=== PATIENT | female | born 1960 | race Caucasian/White ===

== ENCOUNTER 2017-08-09 09:32 | Outpatient (CLI) | payer OTHER ==
--- NOTE | ~2017-08-09 | HEMODYNAMI ---
PATIENT:CRYSTAL RICHARDSON MEDICAL RECORD: [id number] : 62 LOCATION:DLucianoCAT ADMISSION DATE: 08/09/17 Generatedon:08/09/201711:57 Patient name: CRYSTAL RICHARDSON Patient #: [id number] SSN: : Date of study: 08/09/2017 Page: Of Hemodynamic Procedure Report Patient Data Patient Demographics Procedure consent was obtained First Name: CRYSTAL Gender: Female Last Name: DYLAN : 1960 Middle Initial: L Age: 57 year(s) Patient #: [id number] Race: Additional ID: [id number] Contact details [address]: [address] [place] [address] State: [place] City: [place] Zip code: [address] Past Medical History Allergies Allergen Reaction Date Comments Reported Other allergy 05/07/2016 Umair Inhibitors UMAIR inhibitors 08/09/2017 Admission Admission Data Admission Date: 08/09/2017 Admission Time: 9:32 Height (in.): 68 BSA: 2.49 (m2) Height (cm.): 172.72 BMI: 48.2 (kg/m2) Weight (lbs.): 317 Weight (kg.): 143.79 Lab Results Lab Result Date: 08/09/2017 Lab Result Time: 0:00 Biochemistry Name Units Result Min Max BUN mg/dl 13 --(--*-)-- 7 18 Creatinine mg/dl 1 --(--*-)-- 0.6 1.3 CBC Name Units Result Min Max Hemoglobin g/dl 14.3 --(*---)-- 13.5 17.5 Procedure Procedure Types Cath Procedure Diagnostic Procedure [facility] w/Coronaries Miscellaneous Procedures Moderate Sedation up to 15 minutes Procedure Description Procedure Date Procedure Date: 08/09/2017 Procedure Start Time: 11:41 Procedure End Time: 11:49 Procedure Staff Name Function Donavon Marcum MD Performing Physician Zainab Power RT Scrub Wyatt Elizabeth RN Nurse Adelina Daigle RN Nurse Katherin Villatoro RT Monitor Procedure Data Cath Procedure Fluoroscopy Diagnostic fluoroscopy Total fluoroscopy Time: 1.1 time: 1.1 min min Diagnostic fluoroscopy Total fluoroscopy dose: 416 dose: 416 mGy mGy Contrast Material Contrast Material Type Amount (ml) Isovue 300 52 Entry Location Entry Primary Successful Side Size Upsize Upsize Entry Closure Succes sful Closure Location (Fr) 1 (Fr) 2 (Fr) Remarks Device Remarks Femoral Right 5 Fr Exoseal artery Estimated blood loss: 10 ml Diagnostic catheters Device Type Used For End Catheter Placement Cordis 5Fr Pigtail Procedure Catheter (MP) Cordis 5Fr JL 4.0 Procedure Catheter (MP) Cordis 5Fr 3DRC Catheter Procedure (MP) Procedure Complications No complications Procedure Medications Medication Administration Route Dosage 0.9% NaCl 100 ml/hr Oxygen 2 l/min Lidocaine 2% 20 Heparin Flush Bag added to field 2 bags (1000units/500ml NS) Versed I.V. 1 mg Fentanyl I.V. 50 mcg Versed I.V. 1 mg Fentanyl I.V. 50 mcg Versed I.V. 1 mg Fentanyl I.V. 50 mcg Versed I.V. 1 mg Fentanyl I.V. 50 mcg Fentanyl I.V. 25 mcg Hemodynamics Rest BSA: 2.49 (m2) HGB: 14.3 (g/dl) O2 Consumption: Estimated: 242.92 (ml/min) O2 Co nsumption indexed: Estimated:97.56 (ml/min/m) Heart Rate: 74 (bpm) Snapshots Pre Cath Intra NCS Post Cath Vital Signs Time Heart Resp SPO2 etCO2 NIBP (mmHg) Rhythm Pain Sedation Rate (ipm) (%) (mmHg) Status Level (bpm) 11:12:59 73 21 100 26.3 149/85(112) NSR 0 (11) 10(A) , No pain 11:17:38 73 27 100 35.3 167/99(133) NSR 0 (11) 10(A) , No pain 11:22:25 75 19 99 0.7 161/92(124) NSR 0 (11) 10(A) , No pain 11:27:09 78 19 97 41.3 150/93(111) NSR 0 (11) 10(A) , No pain 11:31:48 79 16 96 9 158/92(115) NSR 0 (11) 10(A) , No pain 11:36:33 80 15 96 0.7 156/91(116) NSR 0 (11) 10(A) , No pain 11:41:17 78 17 96 38.3 150/82(101) NSR 0 (11) 9(A) , No pain 11:46:00 82 15 95 51.1 148/85(114) NSR 0 (11) 9(A) , No pain 11:50:43 84 15 95 52.5 154/80(111) NSR 0 (11) 9(A) , No pain 11:56:06 83 16 97 50.3 146/78(105) NSR 0 (11) 10(A) , No pain Medications Time Medication Route Dose Verified Delivered Reason Notes Ef fectiveness by by 11:15:19 0.9% NaCl 100ml/hr Donavon Elizabeth RN 11:15:43 Oxygen 2 l/min Donavon Elizabeth RN 11:16:10 Lidocaine 2% 20ml Donavon Schneider vial Jossue Elizabeth RN 11:17:04 Heparin Flush added 2 bags Donavon Schneider used for Bag to Jossue Elizabeth RN procedure (1000units/500ml field NS) 11:37:31 Versed I.V. 1 mg Donavon Schneider for Jossue Elizabeth RN sedation 11:37:48 Fentanyl I.V. 50 mcg Donavon Schneider for Jossue Elizabeth RN sedation 11:40:59 Versed I.V. 1 mg Donavon Schneider for Jossue Elizabeth RN sedation 11:41:08 Fentanyl I.V. 50 mcg Donavon Schneider for Jossue Elizabeth RN sedation 11:44:38 Versed I.V. 1 mg Donavon Schneider for Jossue Elizabeth RN sedation 11:44:41 Fentanyl I.V. 50 mcg Donavon Schneider for Jossue Elizabeth RN sedation 11:47:23 Versed I.V. 1 mg Donavon Schneider for Jossue Elizabeth RN sedation 11:47:26 Fentanyl I.V. 50 mcg Donavon Schneider for Jossue Elizabeth RN sedation 11:50:30 Fentanyl I.V. 25 mcg Donavon Schneider for Jossue Elizabeth RN sedation Procedure Log Time Note 10:55:27 Patient Height : 68 inches 10:55:34 Patient Weight : 317 lbs 10:56:46 Diagnostic Cath status Elective 10:56:48 Zainab Tono RT(R) sent for patient. Start room use. 10:56:49 Time tracking: Regular hours 10:56:56 Plan of Care:Hemodynamics will remain stable., Cardiac rhythm will remain stable., Comfort level will be maintained., Respiratory function will remain adequate., Patient/ family verbilizes understanding of procedure., Procedure tolerated without complication., Recovers from procedure without complications.. 11:11:14 Patient received from Pre/Post Procedure Room to CCL 2 Alert and oriented. Tansferred to table in Supine position. 11:11:15 Warm blankets applied, and delroy hugger turned on for patient comfort. 11:11:15 Correct patient and procedure confirmed by team. 11:11:17 Signed procedure consent form obtained from patient. 11:11:18 Vital chart was started 11:11:19 Baseline sample Acquired. 11:11:22 Rhythm: sinus rhythm 11:11:24 Full Disclosure recording started 11::29 H&P Date Dictated: 08/09/2017 Within 30 days and on chart., H&P Addendum completed by physician on day of procedure. (MUST COMPLETE FOR ALL OUTPATIENTS). 11:11:30 Pre-procedure instructions explained to patient. 11:11:30 Pre-op teaching completed and patient verbalized understanding. 11:11:31 Family in waiting room. 11:11:33 Patient NPO since Midnight. 11:11:41 Patient allergic to UMAIR inhibitors 11:11:43 Is the patient allergic to Iodine/contrast media? No. 11:11:44 Was the patient premedicated? No 11:11:51 Is patient on blood thinner?Yes 11:11:54 ACC The patient was administered the following blood thiners within the last 24 hours: ACCPlavix 11:13:29 Patient diabetic? No. 11:13:40 Snore? Yes 11:13:41 Sleep apnea? Yes 11:13:46 Dentures? No ? 11:13:52 Patient pain scale 0/10 ?. 11:14:01 IV patent on arrival in left hand with 0.9% NaCl at O. 11:14:20 Lab results completed and on chart. 11:14:23 Right groin area was prepped with chlora-prep and draped in sterile fashion 11:14:24 Alarms reviewed by R. N. 11:14:24 Sharps counted by scrub and verified by R.N. 11:14:26 Physician paged 11:15:19 0.9% NaCl 100ml/hr was administered by Wyatt Elizabeth RN; ; 11:15:43 Oxygen 2 l/min was administered by Wyatt Elizabeth RN; ; 11:16:10 Lidocaine 2% 20ml vial was administered by Wyatt Elizabeth RN; ; 11:17:04 Heparin Flush Bag (1000units/500ml NS) 2 bags added to field was administered by Wyatt Elizabeth RN; used for procedure; 11:19: Lab Result : BUN 13 mg/dl 11:19: Lab Result : Hemoglobin 14.3 g/dl 11:19: Lab Result : Creatinine 1 mg/dl 11:36:43 Physician arrived 11:36:44 --------ALL STOP TIME OUT------ 11:36:45 Final Timeout: patient, procedure, and site verified with staff and physician. All members of the team are in agreement. 11:36:46 Right groin site verified by team. 11:36:52 Sedation plan: IV Moderate Sedation Versed, Fentanyl 11:37:31 Versed 1 mg I.V. was administered by Wyatt Elizabeth RN; for sedation; 11:37:48 Fentanyl 50 mcg I.V. was administered by Wyatt Elizabeth RN; for sedation; 11:40:59 Versed 1 mg I.V. was administered by Wyatt Elizabeth RN; for sedation; 11:41:08 Fentanyl 50 mcg I.V. was administered by Wyatt Elizabeth RN; for sedation; 11:41:27 Use device set Femoral Dx 11:41:41 Procedure started. 11:41:50 Local anesthetic to right femoral artery with Lidocaine 2% by Donavon Marcum MD.INITIAL ACCESS ONLY 11:41:55 Acist Syringe opened to sterile field. 11:41:56 Bag Decanter opened to sterile field. 11:41:56 Medline Cath Pack opened to sterile field. 11:41:57 Terumo 5Fr [place] Sheath opened to sterile field. 11:41:57 [facility] Osman 260cm J .035 wire opened to sterile field. 11:41:59 Acist Hand Control opened to sterile field. 11:41:59 Acist Manifold opened to sterile field. 11:41:59 Diagnostic Infinity 5Fr Multipack catheter opened to sterile field. 11:42:00 Tegaderm 4 x 4 opened to sterile field. 11:43:23 A 5 Fr sheath was inserted into the Right Femoral artery 11:43:34 A Cordis 5Fr Pigtail Catheter (MP) was advanced over the wire and used for Procedure. 11:43:38 LV gram done using MAIER 11:44:25 EF : 60 % 11:44:26 Catheter removed. 11:44:35 A Cordis 5Fr JL 4.0 Catheter (MP) was advanced over the wire and used for Procedure. 11:44:37 LCA angiography performed. 11:44:38 Versed 1 mg I.V. was administered by Wyatt Elizabeth RN; for sedation; 11:44:41 Fentanyl 50 mcg I.V. was administered by Wyatt Elizabeth RN; for sedation; 11:45:49 Catheter removed. 11:46:00 A Cordis 5Fr 3DRC Catheter (MP) was advanced over the wire and used for Procedure. 11:46:05 RCA angiography performed. 11:46:24 Catheter removed. 11:46:36 Cordis 5Fr Exoseal opened to sterile field. 11:47:06 Sheath removed intact; hemostasis achieved with Exoseal to the Right Femoral artery. 11:47:23 Versed 1 mg I.V. was administered by Wyatt Elizabeth RN; for sedation; 11:47:26 Fentanyl 50 mcg I.V. was administered by Wyatt Elizabeth RN; for sedation; 11:48:00 Procedure ended.(Physican Out) 11:48:10 Fluoroscopy time 01.10 minutes. 11:48:50 Fluoroscopy dose: 416 mGy 11:48:50 Flurop Dose total: 416 11:48:56 Contrast amount:Isovue 300 52ml. 11:49:00 Sharps counted by scrub and verified by R.N. 11:49:02 Insertion/operative site no bleeding no hematoma. 11:49:05 Post Procedure Pulses reassessed and unchanged 11:49:14 Post procedure rhythm: unchanged. 11:49:17 Estimated blood loss: 10 ml 11:49:19 Post procedure instruction explained to patient.Patient verbalizes understanding. 11:49:32 Procedure Complication : No complications 11:49:36 Vital chart was stopped 11:49:36 See physician's report for complete and final results. 11:49:43 Patient transfered to Pre/Post Procedure Room with Stretcher. 11:49:45 Procedure ended. 11:49:45 Full Disclosure recording stopped 11:49:53 End room use (Document Last) 11:50:30 Fentanyl 25 mcg I.V. was administered by Wyatt Elizabeth RN; for sedation; Device Usage Item Name Manufacture Quantity Catalog Hospital Part Current Minimal Lo t# / Number Charge Number Stock Stock Serial# Code Acist Acist 1 [id number] 405905 259235 [id number] 20 Syringe [employer] Inc Bag Microtek 1 2002S 338137 47168 461724 5 Decanter [employer] Inc. Medline Cardinal 1 [id number] 166739 07410 937263 5 Cath Pack Health Terumo 5Fr Terumo 1 [id number] 521775 997846 867489 [address] Osman 1 228874 395515 923291 505364 30 260cm J .035 wire Acist Hand Acist 1 52573 518217 425378 446512 5 Control Medical Systems Inc Acist Acist 1 99107 296670 421363 714785 5 Manifold Medical Systems Inc Diagnostic Cardinal 1 [id number] 219088 34002 427585 30 Infinity Health 5Fr Multipack catheter Tegaderm 4 3M 1 1626W 118251 921291 990812 5 x 4 Cordis 5Fr Cardinal 1 279921 5 Pigtail Health Catheter (MP) Cordis 5Fr Cardinal 1 553381 5 JL 4.0 Health Catheter (MP) Cordis 5Fr Cardinal 1 808849 5 3DRC Health Catheter (MP) Cordis 5Fr Cardinal 1 EX500 367048 677781 335077 10 [facility]it [place] Stage Time Signature Unsigned Intra-Procedure 08/09/2017 Katherin Villatoro 11:57:27 AM RT(R) Signatures Monitor : Katherin Villatoro Signature : RT Date : Time : [facility] [address] [place] [address]
[~2017-08-09 09:32] MED LIST: ASPIRIN EC81 M1 PO; FUROSEMIDE20 MG PO; KLOR-CON 1010 MEQ PO; LASIX40 MG PO; LIPITOR40 MG PO; MICRO-K10 MEQ PO; PLAVIX75 MG PO; SYNTHROID25 MCG PO; SYNTHROID300 MCG PO; TENORMIN100 MG PO
[2017-08-09] MEDS ORDERED: CYMBALTA60 MG PO (09:46)
[2017-08-09] MEDS ORDERED: ATIVAN1 MG PO (09:47)
[2017-08-09] MEDS ORDERED: PLAVIX75 MG PO (09:47)
[2017-08-09] MEDS ORDERED: VITAMIN D250000 UNIT PO (09:48)
[2017-08-09 09:50] VITALS: BP 145/98; BMI 47.9
[2017-08-09 10:01] LABS: BASOPHILS 0.2 % (0-2); EOSINOPHILS 3.8 % (0-7); HEMATOCRIT 42.6 % (36.0-48.0); HEMOGLOBIN 14.3 g/dL (12-16); IMMATURE GRANULOCYTES 0.2 % (0-5); LYMPHOCYTES 8.9 % (15-50); MCH 31.3 pg (26.0-34.0); MCHC 33.6 g/dL (31.0-37.0); MCV 93.2 fL (80.0-100.0); MEAN PLATELET VOLUME 10.5 fL (7.4-10.4); MONOCYTES 6.8 % (2-11); NEUTROPHILS 80.1 % (40-80); PLATELET COUNT 196 10x3/uL (130-400); RBC 4.57 10x6/uL (4.00-5.40); WBC 8.4 10x3/uL (4.8-10.8)
[2017-08-09 10:30] LABS: ANION GAP 13.2 mmol/L (8-16); CALCIUM 9.3 mg/dL (8.5-10.1); CARBON DIOXIDE 25.4 mmol/L (21.0-32.0); POTASSIUM - SERUM 4.6 mmol/L (3.5-5.1)
--- NOTE | 2017-08-09 12:14 | NUR ---
1205 REVEIVED PT FROM [facility]. PT DENIES ANY C/O AT THIS TIME. DRESSING TO RIGHT GROIN IS CDI, AREA IS SOFT AND NONTENDER. PEDAL PULSES PALPABLE, FOOT IS WARM. PT INSTRUCTED TO KEEP HEAD FLAT TO PILLOW AND RIGHT LEG STRAIGHT AND PT VERBALIZES UNDERSTANDING. NSR, DENIES ANY C/O CHEST PAIN. FAMILY AT BEDSIDE, CALL LIGHT IS IN REACH.
--- NOTE | 2017-08-09 12:20 | NUR ---
RIGHT GROIN REMAINS STABLE WITH NO BLEEDING OR HEMATOMA NOTED. PEDAL PULSES PALPABLE. VSS. FAMILY AT BEDSIDE, CALL LIGHT IN REACH.
--- NOTE | 2017-08-09 12:42 | NUR ---
DRESSING TO RIGHT GROIN IS CDI, AREA IS SOFT AND NONTENDER. PEDAL PULSES PALPABLE. VSS. FAMILY AT BEDSIDE, CALL LIGHT IN REACH.
--- NOTE | 2017-08-09 13:14 | NUR ---
DRESSING TO RIGHT GROINIS CDI, AREA IS SOFT AND NONTENDER. VSS. FAMILY AT BEDSIDE.
--- NOTE | 2017-08-09 13:43 | NUR ---
1330 HOB ELEVATED, DRESSING TO RIGHT GROIN IS CDI, AREA IS SOFT AND NONTENDER.
--- NOTE | 2017-08-09 13:57 | NUR ---
1345 IV DC'D WITH CATH INTACT. DC INSTRUCTIONS REVIEWED WITH PT AND SPOUSE WHO VERBALIZE UNDERSTANDING. PT DRESSING FOR DC TO HOME.
--- NOTE | 2017-08-09 14:06 | NUR ---
PT HAS AMBULATED TO THE BATHROOM AND VOIDED QS. DENIES ANY C/O. GROIN REMAINS STABLE. PT ESCORTED TO PRIVATE AUTO VIA WC BY NURSE WITH DRIVNG HER HOME.
--- NOTE | 2017-08-23 14:14 | OP ---
PATIENT NAME: CRYSTAL RICHARDSON MEDICAL RECORD: [id number] :62 LOCATION:D.CAT ADMISSION DATE: SURGEON: ANNAMARIA WALTER MD DATE OF OPERATION: 08/09/2017 PROCEDURES: 1. Left heart catheterization. 2. Selective coronary angiography. 3. Left ventriculogram. INDICATION: Angina, coronary artery disease, previous PTCA stent. PROCEDURE IN DETAIL: After informed consent was obtained and after a detailed explanation of the risks, benefits as well as alternative therapies, the patient elected to proceed with angiogram and angioplasty. The right femoral area was prepped and draped in normal sterile fashion. The right femoral artery was cannulated via modified Seldinger technique with placement of 5-Prydeinig sheath. All catheters exchanged through this sheath. FINDINGS: Left ventriculogram performed in standard 30-degree MAIER view, reveals good cardiac wall motion throughout all segments. Overall ejection fraction estimated 60%. SELECTIVE CORONARY ANGIOGRAPHY: 1. Left main showed no significant angiographic disease. 2. Left anterior descending has 2 previously placed stents. These are widely patent with no significant restenosis. No disease elsewise throughout the LAD or its branches. 3. Left circumflex shows moderate irregularities, but no flow-limiting stenosis. 4. Right coronary has moderate irregularities, but no flow-limiting stenosis. OVERALL IMPRESSION: Wide patency of the previously placed stents. No significant restenosis. No disease elsewise. Continue medical management of the coronary artery disease and cardiac risk factors. TRANSINT:[id number] Voice Confirmation ID: [id number] DOCUMENT ID: [id number] ANNAMARIA WALTER MD at 1414 CC: [id number] DICTATION DATE: 08/09/17 1155 BATTERY INSPECTOR: 08/09/17 1212 DEP CLI 08/09/17 [place] [id number]
== END 2017-08-09 14:00 | disposition home or self-care (01) ==
LOC: D.CATH 09:32
PROVIDERS: Internal Medicine Interventional Cardiology
DX: I25.119 Atherosclerotic heart disease of native coronary artery with unspecified angina pectoris (principal); R06.00 Dyspnea, unspecified; R07.9 Chest pain, unspecified; I10 Essential (primary) hypertension; F17.200 Nicotine dependence, unspecified, uncomplicated; Z01.812 Encounter for preprocedural laboratory examination

== ENCOUNTER → 2019-06-29 10:55 | Outpatient (CLI) | payer SELFPAY ==
[~2019-06-29 10:55] MED LIST changes: +ATIVAN1 MG PO; +CYMBALTA60 MG PO; +VITAMIN D250000 UNIT PO
== END | disposition home or self-care (01) ==
LOC: D.LABREF 10:55
PROVIDERS: ATTEND Orthopaedic Surgery
DX: M17.11 Unilateral primary osteoarthritis, right knee (principal)

== ENCOUNTER 2019-07-08 13:51 | Inpatient (IN) | payer OTHER ==
[~2019-07-08] VITALS: Ht 170.2 cm; Wt 150.0 kg
[2019-07-22 11:55] LABS: APTT 25.6 SECONDS (22.8-39.4); PROTIME 12.7 SECONDS (11.6-15.0)
[2019-07-22 12:03] LABS: APPEARANCE CLEAR (CLEAR); BILIRUBIN NEGATIVE (NEGATIVE); COLOR YELLOW (YELLOW); GLUCOSE NEGATIVE (NEGATIVE); KETONE NEGATIVE (NEGATIVE); NITRITE NEGATIVE (NEGATIVE); PROTEIN NEGATIVE (NEGATIVE); SPECIFIC GRAVITY 1.015 (1.005-1.020); UROBILINOGEN NORMAL (NORMAL)
[2019-07-22 12:06] LABS: ANION GAP 11.6 mmol/L (8-16); CALCIUM 9.2 mg/dL (8.5-10.1); CREATININE - SERUM 0.9 mg/dL (0.6-1.3); POTASSIUM - SERUM 4.6 mmol/L (3.5-5.1)
[2019-07-22 12:31] LABS: BASOPHILS 0.3 % (0-2); EOSINOPHILS 4.4 % (0-7); HEMATOCRIT 42.9 % (36.0-48.0); HEMOGLOBIN 13.9 g/dL (12-16); IMMATURE GRANULOCYTES 0.2 % (0-5); LYMPHOCYTES 39.2 % (15-50); MCH 30.2 pg (26.0-34.0); MCHC 32.4 g/dL (31.0-37.0); MCV 93.1 fL (80.0-100.0); MEAN PLATELET VOLUME 11.2 fL (7.4-10.4); MONOCYTES 8.9 % (2-11); PLATELET COUNT 222 10x3/uL (130-400); RBC 4.61 10x6/uL (4.00-5.40); RDW 13.4 % (11.5-14.5)
[2019-07-28] VITALS (11 sets, daily range): BP systolic 113–150; BP diastolic 44–93; Ht 170.2 cm; Wt 150.0 kg
[2019-07-28] MEDS ORDERED: ULTRAM50 MG PO (14:15)
--- NOTE | 2019-07-28 15:27 | NUR ---
PATIENT RESTING ON LEFT SIDE. BRANDO IN ROOM. FALL PRECAUTIONS IN PLACE. VS STABLE. CL IN REACH. WCTM
--- NOTE | 2019-07-28 23:27 | NUR ---
A/O WITH NO SIGNS OF DISTRESS. IV TO THE LT FOREARM WITH NO REDNESS OR SWELLING. WOUND VAC TO THE RIGHT KNEE WITH BLOODY DISCHARGE NOTED. PULSE PALP TO FOOT. APPLIED ICE PACKS TO KNEE. DENIES NO OTHER NEEDS AT THIS TIME. CONTINUE PLAN OF CARE.
[2019-07-29] VITALS: BP 121/63
[2019-07-29 04:00] VITALS: BP 139/56
[2019-07-29 06:20] LABS: HEMATOCRIT 34.7 % (36.0-48.0); HEMOGLOBIN 11.2 g/dL (12-16); MCH 30.2 pg (26.0-34.0); MCHC 32.3 g/dL (31.0-37.0); MCV 93.5 fL (80.0-100.0); MEAN PLATELET VOLUME 11.1 fL (7.4-10.4); RBC 3.71 10x6/uL (4.00-5.40); RDW 13.5 % (11.5-14.5); WBC 9.8 10x3/uL (4.8-10.8)
--- NOTE | 2019-07-29 07:45 | NUR ---
ASSISTED PATIENT OFF CPM MACHINE TO BATHROOM. CPM MACHINE PUT BACK ON AFTER. BRANDO HOSE REMOVED. PT STATED "DR NICOLAS PULLED IT DOWN AND SAYS WE NEEDED TO TAKE IT OFF." COFFEE PROVIDED. CL IN REACH. WCTM
--- NOTE | 2019-07-29 08:20 | CN ---
PATIENT NAME:CRYSTAL RICHARDSON MEDICAL RECORD: [id number] : 62 LOCATION:D.MS [facility]13 ADMIT DATE: 07/28/19 ACCOUNT: [id number] CONSULTING PHYSICIAN: LYNETTE LIEBERMAN MD REFERRING PHYSICIAN: TINO NICOLAS DO DATE OF CONSULTATION: 07/28/2019 This is a consultation from Dr. Nicolas for medical management. HISTORY: This is a 59-year-old female, who I have followed for years. She has hypertension, hyperlipidemia, hypothyroidism, depression, fibromyalgia, osteoarthritis, and coronary artery disease. She has been having right knee pain for over a year. She had an MRI done in April of last year that showed a little meniscus tear, but nothing significant. Another MRI done last month showed more significant arthritis. She was referred to Dr. Nicolas, and she is admitted now by Dr. Nicolas for right total knee arthroplasty. I am consulted for medical problems. PAST SURGICAL HISTORY: She has had coronary stent, cholecystectomy, hysterectomy, ORIF of ankle fracture, and a pilonidal cyst treatment. PAST MEDICAL HISTORY: Hypertension, hyperlipidemia, hypothyroidism, depression, fibromyalgia, osteoarthritis, and coronary artery disease. ALLERGIES: SHE DOES NOT TOLERATE KACY INHIBITORS VERY WELL. HOME MEDICATIONS: Atenolol 100 mg once a day, atorvastatin 20 mg once a day, Cymbalta 60 mg once a day, Ativan 1 mg b.i.d. p.r.n. anxiety, tramadol 50 mg 1 or 2 p.r.n. pain, Lasix 20 mg a day, levothyroxine 150 mcg 2 pills once a day, vitamin D 50,000 units once a week, and potassium 10 mEq once a day. HABITS: She is a current every day smoker. Occasional alcohol. No illicit drug use. SOCIAL HISTORY: She is an RN and . FAMILY HISTORY: Father of prostate cancer. Mother is . She had breast cancer, dementia, coronary artery disease. REVIEW OF SYSTEMS: GENERAL: No major weight changes, if anything maybe weight gain due to lack of ability to exercise. HEENT: No particular sinus or allergy problems. RESPIRATORY: No history of asthma or emphysema, though she is a long time smoker. CARDIAC: Her heart has been stable. She does have a history of stents; however. GASTROINTESTINAL: Occasional heartburn. GENITOURINARY: No significant problems there. MUSCULOSKELETAL: She has osteoarthritis of the knee and has had fibromyalgia. NEUROLOGIC: No migraines or seizure disorder. PSYCHIATRIC: She has anxiety and depression. PHYSICAL EXAMINATION: VITAL SIGNS: Temperature 97.5, pulse 67, respirations 19, blood pressure CONSULT REPORT [id number] CRYSTAL RICHARDSON 124/65. GENERAL: She does not appear to be in acute distress. HEENT: Unremarkable. NECK: Supple. HEART: Regular rate and rhythm without murmur. LUNGS: Clear. ABDOMEN: Obese, soft, nontender. EXTREMITIES: Dressing around the right knee and leg. LABORATORY DATA: Lab done preoperatively. CBC was essentially normal. INR was 1. Basic metabolic panel was normal as was the urinalysis. ASSESSMENT: 1. Hypertension. 2. Osteoarthritis, now status post right TKA by Dr. Nicolas. 3. Hypothyroidism. 4. Fibromyalgia. 5. Depression. PLAN: We will continue her usual current medications. We will continue the postop protocol. Other tests and procedures as warranted. Thank you for this consult. TRANSINT:[id number] Voice Confirmation ID: [id number] DOCUMENT ID: [id number] LYNETTE LIEBERMAN MD at 0820 CC: [id number] DICTATION DATE: 07/28/192106 ADVANCED MANUFACTURING CONSULTANT: 07/29/19 0343 [facility] [address] [place] [address]
[2019-07-29 08:30] VITALS: BP 139/72
[2019-07-29] MEDS ORDERED: ELIQUIS2.5 MG PO (11:50)
[2019-07-29] MEDS ORDERED: OXYCODONE HCL5 M1 PO (11:51)
[2019-07-29] MEDS ORDERED: KEFLEX500 MG PO (11:51)
[2019-07-29] MEDS ORDERED: VISTARIL50 MG PO (11:51)
--- NOTE | 2019-07-29 15:29 | MORECARE ---
CASE MANAGEMENT DISCHARGE SUMMARY PATIENT: CRYSTAL RICHARDSON UNIT: [id number] ADM DATE: 07/28/19 AGE: 59 : 62 SEX: F ROOM/BED: D.2213 AUTHOR: STEPHANIE DELGADO PHYSICIAN: REFERRING PHYSICIAN: TINO NICOLAS DO DATE OF SERVICE: 07/29/19 Discharge Plan Patient Name: CRYSTAL RICHARDSON [facility] [facility] 1960 Planned Disposition: Home with Home Health Anticipated Discharge Date: Discharge Date: Expected LOS: Initial Reviewer: [email or web address] Initial Review Date: 07/28/2019 Generated: 07/29/19 4:29 pm Patient Name: CRYSTAL RICHARDSON Page 94627 at 1529 All edits/amendments must be made on the electronic document DICTATION DATE: 07/29/191528 ONBOARDING SPECIALIST: TYLER 07/29/199 RPT#: [id number] DC DATE: STATUS: ADM IN [facility] [address] [place] [address] END OF REPORT
--- NOTE | 2019-07-29 15:39 | MORECARE ---
CASE MANAGEMENT DISCHARGE SUMMARY PATIENT: CRYSTAL RICHARDSON UNIT: [id number] ADM DATE: 07/28/19 AGE: 59 : 62 SEX: F ROOM/BED: D.2213 AUTHOR: DANNY,DOC PHYSICIAN: REFERRING PHYSICIAN: TINO NICOLAS DO DATE OF SERVICE: 07/29/19 Discharge Plan Patient Name: CRYSTAL RICHARDSON Facility: [facility]:[place] : 1960 Planned Disposition: Home with Home Health Anticipated Discharge Date: Discharge Date: Expected LOS: Initial Reviewer: [email or web address] Initial Review Date: 07/28/2019 Generated: 07/29/19 4:39 pm Comments DCP- Discharge Planning Updated by [email or web address]: Cha Alaniz on 07/29/19 2:[address] Patient Name: CRYSTAL RICHARDSON Admission Status: Elective Accout number: [id number] Admission Date: 07-28-2019 : 1960 Admission Diagnosis: Attending: TINO NICOLAS Current LOS: 1 Anticipated DC Date: Planned Disposition: Home with Home Health Primary Insurance: [employer] PPO LIMITED BENEFIT PLAN Discharge Planning Comments: CM met with patient to complete initial dc planning assessment. CM educated patient on the CM role and verbal consent given by patient to complete assessment. Patient lives at home with her where she is independent with her care. At discharge patient plans to return home and feels this is a safe discharge. Her will be her auto carrier driver home. She has a cane at home. CM discussed availability of home health, rehab services, and medical equipment. She would like home health, [facility] with [facility]. She has had the BSC, walker, ice and CPM machine delivered to her home by [facility]. Dr Galdamez office set this up prior to surgery. I will send the referral to [facility]. Ray notified. Patient denied known discharge needs at this time. CM will continue to follow and will assist as needed with dc plans/needs. Roll Tender: Cha Alaniz DCPIA - Discharge Planning Initial Assessment Updated by [email or web address]: Cha Alaniz on 07/29/19 3:29 pm * Is the patient Alert and Oriented? Yes * How many steps to enter\exit or inside your home? * PCP DR LIEBERMAN * Pharmacy [facility] * Preadmission Environment Home with Family * ADLs Independent * Equipment Bedside Commode Cane Rolling Walker * Other Equipment CPM AND ICE MACHINE * List name and contact numbers for known caregivers / representatives who currently or will assist patient after discharge: BRANDO RICHARDSON [phone] * Verbal permission to speak to the caregivers and representatives has been obtained from the patient. N/A * Community resources currently utilized None * Additional services required to return to the preadmission environment? Yes * Can the patient safely return to the preadmission environment? Yes * Has this patient been hospitalized within the prior 30 days at any hospital? No External Providers External Provider: [facility] Next Contact Date: Service Request Date: Service Type: Resolution: Reviewer: Comments: Coverage Notice Reviewer: [email or web address] Sapphire Alaniz Notice Issued Date-Time: 07/29/2019 15:15 Notice Type: Patient Choice Letter Notice Delivered To: Patient Relationship to Patient: Mortgage Loan Closer Name: Delivery Method: HAND - Hand Delivered Lois Days: Prior Verbal Notification: Recipient Understood Notice: Yes Recipient Signature: Yes Med Rec Note Co-signed by Attending: Coverage Notice Comment: LARRY RIGGINS Last DP export: 07/29/19 2:29 Patient Name: CRYSTAL RICHARDSON Page [phone] at 1539 All edits/amendments must be made on the electronic document DICTATION DATE: 07/29/191538 MARKETING TRAFFIC COORDINATOR: TYLER 07/29/191538 RPT#: [id number] DC DATE: STATUS: ADM IN [facility] [address] [place] [address] END OF REPORT
--- NOTE | 2019-07-29 16:33 | NUR ---
WOUND VAC CHANGED OUT BY MYSELF. IV THERAPY DISCONTINUED FROM LEFT FOREARM BY LEÓN GLEZ. DISCHARGE INSTRUCTIONS GIVEN BY LEÓN GLEZ RN. PATIENT VOICED UNDERSTANDING. WHEELED OUT BY ALDO ESPOSITO RN.
--- NOTE | 2019-07-30 09:52 | MORECARE ---
CASE MANAGEMENT DISCHARGE SUMMARY PATIENT: CRYSTAL RICHARDSON UNIT: [id number] ADM DATE: 07/28/19 AGE: 59 : 62 SEX: F ROOM/BED: D.9323 AUTHOR: DANNY,DOC PHYSICIAN: REFERRING PHYSICIAN: TINO NICOLAS DO DATE OF SERVICE: 07/30/19 Discharge Plan Patient Name: CRYSTAL RICHARDSON Facility: [facility]:[place] : 1960 Planned Disposition: Home with Home Health Anticipated Discharge Date: Discharge Date: 07/29/2019 Expected LOS: 0 Initial Reviewer: [email or web address] Initial Review Date: 07/28/2019 Generated: 07/30/19 10:52 am Comments DCP- Discharge Planning Updated by [email or web address]: Cha Alaniz on 07/29/19 2:[address] Patient Name: CRYSTAL RICHARDSON Admission Status: Elective Accout number: [id number] Admission Date: 07-28-2019 : 1960 Admission Diagnosis: Attending: TINO NICOLAS Current LOS: 1 Anticipated DC Date: Planned Disposition: Home with Home Health Primary Insurance: [employer] PPO LIMITED BENEFIT PLAN Discharge Planning Comments: CM met with patient to complete initial dc planning assessment. CM educated patient on the CM role and verbal consent given by patient to complete assessment. Patient lives at home with her where she is independent with her care. At discharge patient plans to return home and feels this is a safe discharge. Her will be her grab driver home. She has a cane at home. CM discussed availability of home health, rehab services, and medical equipment. She would like home health, [facility]ARRY with [email or web address]. She has had the BSC, walker, ice and CPM machine delivered to her home by [employer]. Dr Galdamez office set this up prior to surgery. I will send the referral to [employer] [facility]. Ray notified. Patient denied known discharge needs at this time. CM will continue to follow and will assist as needed with dc plans/needs. Pot Tender: Cha Alaniz DCPIA - Discharge Planning Initial Assessment Updated by [email or web address]: Cha Alaniz on 07/29/19 3:29 pm * Is the patient Alert and Oriented? Yes * How many steps to enter\exit or inside your home? * PCP DR LIEBERMAN * Pharmacy [facility] * Preadmission Environment Home with Family * ADLs Independent * Equipment Bedside Commode Cane Rolling Walker * Other Equipment CPM AND ICE MACHINE * List name and contact numbers for known caregivers / representatives who currently or will assist patient after discharge: BRANDO RICHARDSON [phone] * Verbal permission to speak to the caregivers and representatives has been obtained from the patient. N/A * Community resources currently utilized None * Additional services required to return to the preadmission environment? Yes * Can the patient safely return to the preadmission environment? Yes * Has this patient been hospitalized within the prior 30 days at any hospital? No Coverage Notice Reviewer: [email or web address] Sapphire Alaniz Notice Issued Date-Time: 07/29/2019 15:15 Notice Type: Patient Choice Letter Notice Delivered To: Patient Relationship to Patient: Clerical Order Filler Name: Delivery Method: HAND - Hand Delivered Lois Days: Prior Verbal Notification: Recipient Understood Notice: Yes Recipient Signature: Yes Med Rec Note Co-signed by Attending: Coverage Notice Comment: LARRY Aldana DP export: 07/29/19 2:39 Patient Name: CRYSTAL RICHARDSON Page [id number] at 0952 All edits/amendments must be made on the electronic document DICTATION DATE: 07/30/19951 CHIEF FINANCIAL OFFICER: TYLER 07/30/19951 RPT#: [id number] DC DATE:07/29/19 STATUS: DIS IN [facility] [address] [place] [address] END OF REPORT
--- NOTE | 2019-09-01 07:00 | OP ---
PATIENT NAME: CRYSTAL CERDA MEDICAL RECORD: [id number] :62 LOCATION:D.MS [facility]2213 ADMISSION DATE:07/28/19 SURGEON: ITZ NICOLAS DO DATE OF OPERATION: 07/28/2019 PROCEDURE PERFORMED: Right total knee arthroplasty. PREOPERATIVE DIAGNOSIS: Right knee osteoarthritis. POSTOPERATIVE DIAGNOSIS: Right knee osteoarthritis. INDICATIONS: Ms. Cerda is a 59-year-old morbidly obese female, who has had right knee pain for quite some time. She has tried all manner nonoperative treatment. Her BMI is 50. She has tried all these methods without any relief of the knee pain. She wanted to be more active. I informed her that I would do it, but she would be at extremely high risk for infection, failure of implants, bleeding, damage to nerves and vessels, blood clots, and even due to her size. She was okay with that and signed the consent. SURGEON: Itz Nicolas DO DESCRIPTION OF PROCEDURE: I was assisted by Emerson Mercado, advanced nurse practitioner. The patient was given a block by anesthesia in the preoperative area and taken to the operative suite, laid in supine position, given general anesthetic and LMA was placed. A 3 grams of Ancef and 80 mg of gentamicin were given. The right lower extremity was then prepped and draped in sterile fashion. Timeout was performed. Everyone was in agreeance with the correct side, site, patient and procedure. We then marked out an incision over the anterior knee and covered the knee with Ioban. The incision was then made down to the capsule with a 10-blade scalpel. A fresh 10-blade scalpel was then used to the medial parapatellar approach through the capsule. The patella was everted. Part of the fat pad was removed and the patella was milled down. The femur was then flexed up and the femoral canal was entered. Distal femur was then cut. The proximal tibia was cut. I then removed the menisci and the extension block fit very well. I then flexed the knee up and the femur sized to be a 65. A 4-in-1 cutting block was then put on and cut and first we used an sandee wing to assure no notching. The trials were then placed on the femur and tibia was floated in and ranged and marked for rotation. The patella was then drilled as well as the lug holes for the femur and then the tibia was prepared, sized to be 67. This was drilled and punched. An extra hole was then put in the tibia for the cement. The cement was then placed in the tibia and on the implant, impacted into place. Excess cement was removed. The femur was then put on and a 10 poly in between. Knee was brought out to extension and the patella was cemented and the patellar holes in the patella and the squeezer was put on. Excess cement was removed. The knee was then thoroughly irrigated with Bactisure and 2 liters of normal saline. Any bleeding was coagulated with Aquamantys throughout the procedure. We then sized and the 12 poly seemed to fit very well and put in a 12 E poly and locked it in with a locking mechanism locking bar. We then put in tobramycin and vancomycin powder as well as Surgicel powder and then the capsule was closed with #2 Ethibond in a simtxw-or-togrm fashion and a 2-0 Vicryl in inverted interrupted fashion on the knee, ZipLine on the knee and then a Prevena incisional VAC was placed on the knee and wrapped with an Umair wrap by Emerson Mercado APRN. She was awakened and taken to recovery in stable condition. Blood loss was approximately 250 mL. OPERATIVE REPORT [id number] CRYSTAL CERDA COMPLICATIONS: None. TRANSINT:[id number] Voice Confirmation ID: [id number] DOCUMENT ID: [id number] 08/31/2019 Edited for molly Parsons. ITZ NICOLAS DO at 0700 CC: LYNETTE LIEBERMAN MD [id number] DICTATION DATE: 07/28/19 1157 FEEDER ASSOCIATE: 07/28/19 1246 DIS IN 07/29/19 [facility] [address] [place] [address]
== END 2019-07-29 16:35 | disposition home health service (06) | DRG 470 ==
LOC: D.SDCHOLD 07-22 10:00 → D.MS 07-28 13:35
PROVIDERS: ADMIT Orthopaedic Surgery; ATTEND Orthopaedic Surgery
PROC: 0SRC0J9 Replacement of Right Knee Joint with Synthetic Substitute, Cemented, Open Approach (ICD-10-PCS; principal; 2019-07-28 10:15)
DX: M17.11 Unilateral primary osteoarthritis, right knee (principal); Z68.43 Body mass index [BMI] 50.0-59.9, adult; E66.01 Morbid (severe) obesity due to excess calories; E03.9 Hypothyroidism, unspecified; E78.5 Hyperlipidemia, unspecified; M79.7 Fibromyalgia; I25.10 Atherosclerotic heart disease of native coronary artery without angina pectoris; F32.9 Major depressive disorder, single episode, unspecified

== ENCOUNTER → 2020-02-03 12:39 | Outpatient (CLI) | payer OTHER ==
[2019-07-28 14:06] VITALS: BMI 51.8
[~2020-02-03 12:39] MED LIST changes: +ELIQUIS2.5 MG PO; +KEFLEX500 MG PO; +OXYCODONE HCL5 M1 PO; +ULTRAM50 MG PO; +VISTARIL50 MG PO
== END | disposition home or self-care (01) ==
LOC: D.MRI 12:39
PROVIDERS: ATTEND Orthopaedic Surgery
DX: M79.604 Pain in right leg (principal); M79.605 Pain in left leg

== ENCOUNTER → 2020-02-10 13:16 | Outpatient (CLI) | payer OTHER ==
[2019-07-28 14:06] VITALS: BMI 51.8
[2020-02-10 13:33] LABS: BASOPHILS 0.5 % (0-2); EOSINOPHILS 4.4 % (0-7); HEMOGLOBIN 13.3 g/dL (12-16); IMMATURE GRANULOCYTES 0.2 % (0-5); MCH 30.4 pg (26.0-34.0); MCHC 32.4 g/dL (31.0-37.0); MCV 93.8 fL (80.0-100.0); MEAN PLATELET VOLUME 10.8 fL (7.4-10.4); MONOCYTES 12.8 % (2-11); NEUTROPHILS 42.1 % (40-80); RBC 4.37 10x6/uL (4.00-5.40); RDW 13.7 % (11.5-14.5); WBC 5.5 10x3/uL (4.8-10.8)
[2020-02-10 13:34] LABS: PLATELET COUNT 224 10x3/uL (130-400)
[2020-02-10 13:44] LABS: % SATURATION 17 % (15-55); IRON 63 ug/dl (35-150); TOTAL IRON BIND CAPACITY 365 ug/dl (260-445); UNSAT IRON BIND CAPACITY 302 ug/dl (150-375)
[2020-02-10 14:06] LABS: ALBUMIN 3.6 g/dL (3.4-5.0); BILIRUBIN - TOTAL 0.26 mg/dL (0.2-1.3); CALCIUM 9.2 mg/dL (8.5-10.1); CARBON DIOXIDE 28.7 mmol/L (21.0-32.0); CREATININE - SERUM 0.9 mg/dL (0.6-1.3); POTASSIUM - SERUM 4.1 mmol/L (3.5-5.1)
[2020-02-10 14:13] LABS: ANION GAP 11.4 mmol/L (8-16)
== END | disposition home or self-care (01) ==
LOC: D.LABREF 13:16
PROVIDERS: ATTEND Orthopaedic Surgery
DX: M79.605 Pain in left leg (principal); M79.604 Pain in right leg

== ENCOUNTER 2020-05-27 12:25 | Day surgery (SDC) | payer OTHER ==
[2020-05-26 12:23] LABS: HEMATOCRIT 43.8 % (36.0-48.0); HEMOGLOBIN 14.7 g/dL (12-16); MCH 30.9 pg (26.0-34.0); MCHC 33.6 g/dL (31.0-37.0); MEAN PLATELET VOLUME 10.1 fL (7.4-10.4); RBC 4.76 10x6/uL (4.00-5.40); RDW 13.6 % (11.5-14.5); WBC 8.2 10x3/uL (4.8-10.8)
[2020-05-26 12:38] LABS: ANION GAP 8.9 mmol/L (8-16); CALCIUM 9.4 mg/dL (8.5-10.1); CARBON DIOXIDE 29.5 mmol/L (21.0-32.0); POTASSIUM - SERUM 4.4 mmol/L (3.5-5.1)
[~2020-05-27] VITALS: Ht 170.2 cm; Wt 150.1 kg
[2020-05-27 13:28] VITALS: BP 133/66; Ht 170.2 cm; Wt 150.1 kg
--- NOTE | 2020-05-27 18:44 | NUR ---
1530 iv removed and pressure held INSTRUCTIONS GIVEN
--- NOTE | 2020-05-28 07:52 | OP ---
PATIENT NAME: CRYSTAL CERDA MEDICAL RECORD: [id number] :62 LOCATION:[facility] ADMISSION DATE: SURGEON: TINO NICOLAS DO DATE OF OPERATION: 05/27/2020 PROCEDURE PERFORMED: Right endoscopic carpal tunnel release. PREOPERATIVE DIAGNOSIS: Right carpal tunnel syndrome. POSTOPERATIVE DIAGNOSIS: Right carpal tunnel syndrome. INDICATIONS: Ms. Cerda is a 60-year-old female who has had carpal tunnel symptoms for quite some time. She is tired of dealing with the pain and wanted something done surgically about it. She did not want to wait to get a nerve conduction study because leave it due to an insurance issue, but she had all the signs and symptoms. She is aware of the risks of doing it without it, including continued pain, numbness, tingling and problems with median nerve and she is aware of all that and signed a consent. DESCRIPTION OF SURGERY: The patient was taken to operative suite, laid in supine position, given general anesthetic, given Ancef preoperatively. The patient was sedated and LMA was placed. Right upper extremity was then prepped and draped in sterile fashion. A timeout was performed and everyone was in agreeance with the correct side, site, patient and procedure. We then began by making an incision, centered over the palmaris longus tendon on the palmar side of the wrist with a 15 blade scalpel just through the skin and then using a Ragnell to dissect down to the median nerve. Once this was identified, I released the forearm fascia from distal to proximal at the site and then entered the dilators into the carpal tunnel. I then put in the sheath and the camera. I then used a rasp to clean off the transverse carpal ligament as well as a probe and brought in the blade, raised it up and released the transcarpal ligament. I then herniated down into the carpal tunnel. I then removed the instruments and used a Ragnell and scissors to ensure there were no remaining fibers of the transcarpal ligament left. The tourniquet was then let down and it was inflated prior to starting after exsanguinating the right upper extremity to 250 mmHg, it was up for 6 minutes. I then injected the site with 8 mL of 0.25% Marcaine with epinephrine and then John Paul Murillo, certified surgical assistant loan processor, closed the skin with 5-0 Monocryl in inverted interrupted fashion. Steri-Strips, Adaptic, 4 x 4's, Kerlix, and a Coban was lightly wrapped on the wrist. She was then awakened and taken to recovery in stable condition. BLOOD LOSS: Minimal. COMPLICATIONS: None. TRANSINT:[id number] Voice Confirmation ID: [id number] DOCUMENT ID: [id number] OPERATIVE REPORT [id number] CRYSTAL CERDA MICHAEL D, DO at 0752 CC: [id number] DICTATION DATE: 05/27/20 1423 SEARCH MANAGER: 05/27/20 222 [facility] 05/27/20 [facility] [address] [place] [address]
== END 2020-05-27 15:45 | disposition home or self-care (01) ==
LOC: D.OPS 12:25 → D.PAN 13:45 → D.OPS 13:45
PROVIDERS: Anesthesiology; ATTEND Orthopaedic Surgery
DX: G56.01 Carpal tunnel syndrome, right upper limb (principal); M79.641 Pain in right hand; I10 Essential (primary) hypertension; K21.9 Gastro-esophageal reflux disease without esophagitis; I25.10 Atherosclerotic heart disease of native coronary artery without angina pectoris; M17.12 Unilateral primary osteoarthritis, left knee

== ENCOUNTER → 2021-01-12 11:47 | Outpatient (CLI) | payer OTHER ==
[2020-05-27 13:28] VITALS: BMI 51.9
--- NOTE | 2021-01-13 17:14 | EC ---
PATIENT:CRYSTAL RICHARDSON DATE OF SERVICE: 01/12/21 SEX: F MEDICAL RECORD: [id number] DATE OF : 62 [facility] AGE OF PATIENT: 60 ADMISSION DATE: 01/12/21 REFERRING PHYSICIAN: INTERPRETING PHYSICIAN: HANNAH LITTLE MD ECHOCARDIOGRAM REPORT ECHO CHARGES 4 ECHO COMPLETE Date: 01/13/20 CLINICAL DIAGNOSIS: HEART MURMUR, MITRAL REGURG HX OF CAD ECHOCARDIOGRAPHIC MEASUREMENTS (adult normal given) AC root (d.<3.7cm) 3.3 cm LV Septum d (<1.2 cm> 1.1 cm Valve Excursion 1.1 cm LV Septum (systole) 1.4 cm Left Atria (s.<4.0cm> 3.9 cm LVPW d(<1.2cm) 1.2 cm RV (d.<2.3cm) 3.1 cm LVPW (sytole) 1.8 cm LV diastole(<5.6CM) 4.8 cm MV E-F(>70mm/sec) cm LV systole 3.3 cm LVOT Diameter 1.8 cm MV exc.(>10mm) 1.0 cm Est.ejection fraction (50-75%) % DOPPLER: LVIT cm/sec A 85.0 cm/sec E 106.0 cm/sec LA cm/sec RVSP 18 mmHg LVOT 126 cm/sec AOP1/2T m/s Asc. Ao 165 cm/sec RVOT cm/sec RA cm/sec PA cm/sec AV Gradient Peak 10.95mmHg AV Mean 4.85 mmHg AV Area 2.6 cm MV Gradient Peak 5.40 mmHg MV Mean 2.21 mmHg MV Area cm COMMENTS: Horticultural Manager: 2 BOO HERNANDEZ [employer] Internship: 3 Dr. Shepard TAPE# PACS Pericardial Effusion N DATE OF SERVICE: Adequate 2D, color-flow imaging, spectral Doppler, and M-Mode FINDINGS: No LVH. LV internal dimension is normal. Wall motion is normal. EF is greater than or equal to 55%. Aortic valve is tricuspid. No evidence of stenosis by Doppler interrogation. Left atrium is normal at 3.9 cm. Mitral valve shows no prolapse. Trivial MR. Right side is grossly normal. Trivial TR. ECHOCARDIOGRAM REPORT [id number] CRYSTAL RICHARDSON TRANSINT:[id number] Voice Confirmation ID: [id number] DOCUMENT ID: [id number] HANNAH LITTLE MD at 1714 CC: [id number] DICTATION DATE: 01/13/21 1037 SQL PROGRAMMER: 01/13/21 1429 [facility] CLI 01/12/21 [place] [id number] [place] [id number]
== END | disposition home or self-care (01) ==
LOC: D.HCCECHO 11:30
PROVIDERS: ATTEND Internal Medicine Interventional Cardiology
DX: R01.1 Cardiac murmur, unspecified (principal)

== ENCOUNTER → 2021-02-20 13:30 | Outpatient (CLI) | payer OTHER ==
[2020-05-27 13:28] VITALS: BMI 51.9
== END | disposition home or self-care (01) ==
LOC: D.CT 13:30
PROVIDERS: ATTEND Internal Medicine Interventional Cardiology
DX: I65.23 Occlusion and stenosis of bilateral carotid arteries (principal); I67.9 Cerebrovascular disease, unspecified

== ENCOUNTER 2021-03-02 07:23 | Day surgery (SDC) | payer OTHER ==
--- NOTE | 2021-03-01 14:11 | NUR ---
APPOINTMENT CONFIRMED
[~2021-03-02] VITALS: Ht 170.2 cm; Wt 147.7 kg
--- NOTE | ~2021-03-02 | HEMODYNAMI ---
PATIENT:CRYSTAL RICHARDSON MEDICAL RECORD: [id number] : 62 [id number] ADMISSION DATE: 03/02/21 Generatedon:111:08 Patient name: CRYSTAL RICHARDSON Patient #: [id number] SSN: : Date of study: 03/02/2021 Page: Of Hemodynamic Procedure Report Patient Data Patient Demographics Procedure consent was obtained First Name: CRYSTAL Gender: Female Last Name: DYLAN : 1960 Middle Initial: L Age: 60 year(s) Patient #: [id number] Race: Additional ID: [id number] Contact details [address]: [address] [place] [address] State: [place] City: [place] Zip code: [address] Past Medical History Allergies: No known allergies Admission Admission Data Admission Date: 03/02/2021 Admission Time: 7:23 Procedure Procedure Types Cath Procedure Peripheral Cath Diagnostic Procedure 4-Vessel 4 Vessel Carotid Arterio Arch Procedure Description Procedure Date Procedure Date: 03/02/2021 Procedure Start Time: 10:25 Procedure Staff Name Latosha Rowe MD Performing Physician Teresa Harden RT Rotary Driller Mary Jimenez RN Nurse Tejas Wilson RT Scrub Sabrina Peoples RN Nurse Procedure Data Cath Procedure Fluoroscopy Diagnostic fluoroscopy Total fluoroscopy Time: 5.2 time: 5.2 min min Diagnostic fluoroscopy Total fluoroscopy dose: 663 dose: 663 mGy mGy Contrast Material Contrast Material Type Amount (ml) Isovue 300 105 Diagnostic catheters Device Type Used For End Catheter Placement Merit ULTRA BOLUS FLUSH 5Fr 90CM catheter ([id number]) Procedure Medications Medication Administration Route Dosage Lidocaine 1% added to field 20 Heparin Flush Bag added to field 3 bags (1000units/500ml NS) Versed I.V. 1 mg Fentanyl I.V. 50 mcg Versed I.V. 1 mg Fentanyl I.V. 50 mcg Versed I.V. 1 mg Fentanyl I.V. 50 mcg Hemodynamics Rest Heart Rate: 59 (bpm) Snapshots Pre Cath Intra NCS Post Cath Vital Signs Time Heart Resp SPO2 etCO2 NIBP (mmHg) Rhythm Pain Sedation Rate (ipm) (%) (mmHg) Status Level (bpm) 10:03:08 57 19 38.3 Measuring NSR 0 (11) 10(A) , No pain 10:03:49 64 13 100 36.1 169/80(113) NSR 0 (11) 10(A) , No pain 10:08:48 55 18 100 33.8 Measuring NSR 0 (11) 10(A) , No pain 10:08:57 66 19 100 34.6 141/74(92) NSR 0 (11) 10(A) , No pain 10:13:15 50 17 100 31.6 151/66(84) NSR 0 (11) 10(A) , No pain 10:17:33 49 22 100 27 150/77(112) NSR 0 (11) 10(A) , No pain 10:21:45 54 16 100 33.1 147/83(115) NSR 0 (11) 10(A) , No pain 10:26:36 54 22 100 21 168/81(96) NSR 0 (11) 8(A) , No pain 10:31:04 55 14 99 34.5 123/72(113) NSR 0 (11) 8(A) , No pain 10:36:03 55 10 93 42.1 Measuring NSR 0 (11) 8(A) , No pain 10:36:05 56 10 94 42.1 180/99(163) NSR 0 (11) 8(A) , No pain 10:40:27 67 10 91 27.8 171/89(119) NSR 0 (11) 8(A) , No pain 10:44:45 69 8 96 42.8 156/86(132) NSR 0 (11) 8(A) , No pain 10:49:01 55 12 98 42.8 161/80(106) NSR 0 (11) 8(A) , No pain 10:53:24 57 12 100 45.1 160/74(112) NSR 0 (11) 8(A) , No pain 10:57:40 58 11 99 42.8 172/90(125) NSR 0 (11) 8(A) , No pain 11:02:02 58 15 100 45.8 175/87(110) NSR 0 (11) 8(A) , No pain 11:06:02 0 No Cuff NSR 0 (11) 8(A) , No pain Medications Time Medication Route Dose Verified Delivered Reason Notes Effec tiveness by by 10:17:18 Lidocaine 1% added 20ml M J Long M J Long used for to vial MD CAMACHO procedure field 10:17:38 Heparin Flush added 3 M J Long M J Long used for Bag to bags MD CAMACHO procedure (1000units/500ml field NS) 10:25:05 Versed I.V. 1 mg M J Long Mary for MD Jimenez sedation RN 10:25:19 Fentanyl I.V. 50 M J Long Mary for [facility] MD Jimenez sedation RN 10:29:37 Versed I.V. 1 mg M J Long Mary for MD Jimenez sedation RN 10:29:44 Fentanyl I.V. 50 M J Long Mary for deven Jimenez sedation RN 10:34:47 Versed I.V. 1 mg M J Long Mary for MD Jimenez sedation RN 10:34:56 Fentanyl I.V. 50 M J Long Mary for [facility] MD Jimenez sedation program review director Log Time Note 9:54:50 Time tracking: Regular hours (M-F 7:00 - 5:00) 9:55:56 Plan of Care:Hemodynamics will remain stable., Cardiac rhythm will remain stable., Comfort level will be maintained., Respiratory function will remain adequate., Patient/ family verbilizes understanding of procedure., Procedure tolerated without complication., Recovers from procedure without complications.. 9:56:03 Patient received from Outpatients to IR Alert and oriented. Tansferred to table in Supine position. 9:56:06 Signed procedure consent form obtained from patient. 9:56:21 H&P Date Dictated: 03/02/2021 Within 30 days and on chart., H&P Addendum completed by physician on day of procedure. (MUST COMPLETE FOR ALL OUTPATIENTS). 9:56:23 Pre-procedure instructions explained to patient. 9:56:24 Pre-op teaching completed and patient verbalized understanding. 9:56:27 Family unavailable. 9:56:29 Patient NPO since Midnight. 9:58:18 Patient allergic to No known allergies 9:58:24 Is the patient allergic to Iodine/contrast media? No. 9:58:27 Is patient on blood thinner?No 9:58:31 Patient diabetic? No. 9:58:33 - 9:58:34 ----Pre-sedation anethsthesia assessment.---- 9:58:38 Previous problem with sedation/anesthesia? No ? 9:58:41 Snore? Yes 9:58:46 Sleep apnea? No 9:58:50 Deviated septum? No 9:58:53 Opens mouth fully? Yes 9:58:56 Sticks out tongue? Yes 9:58:59 Airway obstruction? No ? 9:59:03 Dentures? No ? 9:59:05 - 9:59:09 Pre procedure: right dorsailis pedis pulse Doppler 9:59:13 Pre procedure: right posterior tibial pulse Doppler 9:59:22 Right groin area was prepped with chlora-prep and draped in sterile fashion 9:59:25 Alarms reviewed by Francine Maldonado 9:59:33 - 9:59:40 Use device set IR Diagnostic 9:59:44 Tegaderm 4 x 4 (1626W) opened to sterile field. 9:59:46 Sterile Angiographic Pack opened to sterile field. 9:59:47 Bag Decanter () opened to sterile field. 9:59:50 ACIST Manifold (39717) opened to sterile field. 9:59:51 ACIST Hand Control (29584) opened to sterile field. 9:59:52 ACIST Syringe (53513) opened to sterile field. 10:00:24 DOUBLE ENDED GUIEDWIRE DOC 145CM (X54408) opened to sterile field. 10:00:25 TUBING Contrast Injection High Pressure ([id number]) opened to sterile field. 10:00:26 Micropuncture VSI 4FR kit opened to sterile field. 10:00:38 SHEATH 5FR Elizabeth (NJP795) opened to sterile field. 10:01:18 ECG and BP/O2 sat monitors applied to patient. 10:01:20 Vital chart was started 10:01:21 Baseline sample Acquired. 10:01:22 Full Disclosure recording started 10:01:23 - 10:17:18 Lidocaine 1% 20ml vial added to field was administered by Matthew Rowe MD; used for procedure; Verbal order read back and verified. 10:17:38 Heparin Flush Bag (1000units/500ml NS) 3 bags added to field was administered by Matthew Rowe MD; used for procedure; Verbal order read back and verified. 10:24:05 Physician arrived 10:24:05 --------ALL STOP TIME OUT------ 10:24:06 Final Timeout: patient, procedure, and site verified with staff and physician. All members of the team are in agreement. 10:24:35 Baseline sample Acquired. 10:24:43 Fire Safety Assessment: A--An alcohol-based skin anteseptic being used preoperatively., C--Open oxygen or nitrous oxide is being used. 10:24:51 2) 60-89 Mildly reduced kidney function, and other findings (as for stage 1) point to kidney disease. 10:25:04 Procedure started. 10:25:05 Versed 1 mg I.V. was administered by Mary Jimenez RN; for sedation; Verbal order read back and verified. 10:25:09 Local anesthetic to right femoral artery with Lidocaine 1% by Matthew Rowe MD.INITIAL ACCESS ONLY 10:25:19 Fentanyl 50 mcg I.V. was administered by Mary Jimenez RN; for sedation; Verbal order read back and verified. 10:29:13 Arterial access obtained using ultrasound guidance. 10:29:37 Versed 1 mg I.V. was administered by Mary Jimenez RN; for sedation; Verbal order read back and verified. 10:29:44 Fentanyl 50 mcg I.V. was administered by Mary Jimenez RN; for sedation; Verbal order read back and verified. 10:33:46 A DNP [employer] ULTRA BOLUS FLUSH 5Fr 90CM catheter ([id number]) was advanced over the wire and used for . 10:34:47 Versed 1 mg I.V. was administered by Mary Jimenez RN; for sedation; Verbal order read back and verified. 10:34:56 Fentanyl 50 mcg I.V. was administered by Mary Jimenez RN; for sedation; Verbal order read back and verified. 10:41:21 TORQUE DEVICE PLASTIC .038 ( TD01) opened to sterile field. 10:41:22 GLIDE WIRE ANGLE 260cm (UQ2322) opened to sterile field. 10:41:23 GLIDE WIRE ANGLE 180cm (MD5479) opened to sterile field. 10:53:53 ANGIOSEAL-VIP PLUS 6 FR opened to sterile field. 10:57:07 Procedure ended.(Physican Out) 10:57:44 Fluoroscopy time 05.20 minutes. 10:57:49 Fluoroscopy dose: 663 mGy 10:57:49 Flurop Dose total: 663 10:58:22 Contrast amount:Isovue 300 105ml. 10:58:31 Procedure and supply charges have been captured, reviewed, submitted an d are correct. 11:07:26 Report given to Outpatients. 11:07:37 Patient transfered to Outpatients with Stretcher. 11:07:59 Vital chart was stopped Device Usage Item Name Manufacture Quantity Catalog Number Hospital Part Current [facility] Lot# / Charge Number Stock Stock Serial# Code Tegaderm 4 x 4 3M 1 1626W [id number] 148659 5 (1626W) Sterile Cardinal 1 [id number] 021020 070140 5 Angiographic Health Pack Bag Decanter Microtek 1 391794 64250 515486 5 () Medical Inc. ACIST Manifold Acist 1 88693 907977 656556 622866 5 (40260) Medical Systems Inc ACIST Hand Acist 1 46563 913118 774346 844457 5 Control Medical (80992) Systems Inc ACIST Syringe Acist 1 94486 514671 381919 762738 20 (92413) Medical Systems Inc DOUBLE ENDED Cook Medical 1 Q02602 351010 189654 1 GUIEDWIRE DOC 145CM (C16247) TUBING Merit 1 [id number] 209768 494738 568220 5 Contrast Medical Injection High Pressure (AZZ103X) Micropuncture VSI VASCULAR 1 7266V 142639 779362 5 VSI 4FR kit SOLUTIONS SHEATH 5FR Terumo 1 NYM569 950940 799145 924879 5 Elizabeth (YFV473) Merit ULTRA Merit 1 [id number] 974027 829697 5 BOLUS FLUSH Medical 5Fr 90CM catheter ([id number]) TORQUE DEVICE Addison 1 TD01 218191 535861 258487 5 PLASTIC .038 ( Scientific TD01) GLIDE WIRE Terumo 1 SV3183 180843 822228 638084 5 ANGLE 260cm (ZO9971) GLIDE WIRE Terumo 1 BK9408 367115 278554 178366 5 ANGLE 180cm (QO6680) ANGIOSEAL-[facility] [place] 1 535128 531202 987894 582911 5 PLUS 6 FR Signature Audit [place] Stage Time Signature Unsigned Intra-Procedure 03/02/2021 Teresa Harden 11:07:56 AM RT(R) [facility] [address] [place] [address]
[2021-03-02 07:59] LABS: BASOPHILS 1.2 % (0-2); EOSINOPHILS 3.6 % (0-7); HEMATOCRIT 38.8 % (36.0-48.0); HEMOGLOBIN 12.9 g/dL (12-16); LYMPHOCYTES 42.7 % (15-50); MCH 30.2 pg (26.0-34.0); MCHC 33.1 g/dL (31.0-37.0); MCV 91.2 fL (80.0-100.0); MEAN PLATELET VOLUME 8.1 fL (7.4-10.4); MONOCYTES 11.9 % (2-11); NEUTROPHILS 40.6 % (40-80); PLATELET COUNT 202 10x3/uL (130-400); RBC 4.26 10x6/uL (4.00-5.40); RDW 13.5 % (11.5-14.5); WBC 5.7 10x3/uL (4.8-10.8)
[2021-03-02 08:01] LABS: ANION GAP 12.9 mmol/L (8-16); CALCIUM 8.7 mg/dL (8.5-10.1); CARBON DIOXIDE 26.2 mmol/L (21.0-32.0); CREATININE - SERUM 0.9 mg/dL (0.6-1.3); POTASSIUM - SERUM 4.1 mmol/L (3.5-5.1)
[2021-03-02 08:16] LABS: APTT 25.9 SECONDS (22.8-39.4); PROTIME 12.2 SECONDS (11.6-15.0)
[2021-03-02 08:20] VITALS: Ht 170.2 cm; Wt 147.7 kg
--- NOTE | 2021-03-02 11:45 | NUR ---
REPOSITIONED WITH PILLOW UNDER LEFT HIP/THIGH D/T PAIN IN LOW BACK, HIPS, CALLED SURGERY[facility] TO NOTIFIY OF PT'S PAIN AND REQUESTING A PAIN PILL. 1315 LUNCH TRAY ORDERED. 1520 PIV REMOVED WITH CATHETER INTACT. PT UP TO VOID IN BATHROOM WITH MINIMAL ASSITANCE FROM THIS NURSE AND PT'S . PT GETTING DRESSED WITH PT'S ASSISTING. 1530 DC TEACHING COMPLETE, VERBALIZED UNDERSTANDING. 1540 DC'D VIA WC ACCOMPANIED BY THIS NURSE WITH ALL BELONGINGS AND DC PACKET TO POV WITH DRIVING.
== END 2021-03-02 15:40 | disposition home or self-care (01) ==
LOC: D.RAD 07:23
PROVIDERS: Radiology Vascular & Interventional Radiology; ATTEND Thoracic Surgery (Cardiothoracic Vascular Surgery)
DX: I65.22 Occlusion and stenosis of left carotid artery (principal)

== ENCOUNTER 2021-03-09 09:21 | Inpatient (IN) | payer OTHER ==
[~2021-03-09] VITALS: Ht 170.2 cm; Wt 155.8 kg
[2021-03-09] MEDS ORDERED: CELEXA20 MG PO (09:54)
[2021-03-09 11:09] LABS: BILIRUBIN NEGATIVE (NEGATIVE); KETONE NEGATIVE (NEGATIVE); NITRITE NEGATIVE (NEGATIVE); UROBILINOGEN NORMAL mg/dL (< 2)
[2021-03-09 11:10] LABS: HEMATOCRIT 44.1 % (36.0-48.0); HEMOGLOBIN 14.8 g/dL (12-16); MCH 30.4 pg (26.0-34.0); MCHC 33.5 g/dL (31.0-37.0); MCV 90.7 fL (80.0-100.0); MEAN PLATELET VOLUME 8.4 fL (7.4-10.4); RBC 4.86 10x6/uL (4.00-5.40); RDW 13.8 % (11.5-14.5); WBC 6.9 10x3/uL (4.8-10.8)
[2021-03-09 11:20] LABS: APTT 30.4 SECONDS (22.8-39.4); INR 0.97 (0.85-1.17); PROTIME 11.9 SECONDS (11.6-15.0)
[2021-03-09 11:28] LABS: BILIRUBIN - TOTAL 0.3 mg/dL (0.2-1.3); CALCIUM 9.3 mg/dL (8.5-10.1); CARBON DIOXIDE 28.4 mmol/L (21.0-32.0); POTASSIUM - SERUM 4.4 mmol/L (3.5-5.1); PROTEIN - SERUM 8.2 g/dL (6.4-8.2)
[2021-03-14] VITALS (31 sets, daily range): BP systolic 104–158; BP diastolic 49–68; BMI 52.1; BMI 53.5
[2021-03-14] MEDS ORDERED: PLAVIX75 MG PO (10:11)
[2021-03-14] MEDS ORDERED: BAYER CHEWABLE81 MG PO (10:12)
--- NOTE | 2021-03-14 17:47 | NUR ---
1657 PT ARRIVED TO ROOM FROM OR, ALERT AND ORIENTED, TONGUE DEVIATION AND FACIAL DROOPING TO THE RIGHT WITH SLURRED SPEECH, DR MESA IN UNIT AND NOTIFIED, R SUBCLAVIAN CVL DRESSING CDI, L CEA INCISION SITE CDI WITH PANKAJ DRAIN COMPRESSED WITH BLOODY DRAINAGE AND ICE PACK APPLIED, L RADIAL A LINE ZEROED WITH GOOD WAVEFORM AND WRIST PROTECTOR IN PLACE, VALLEJO DRAINING YELLOW URINE, IN UNIT AND UPDATED BY DR MESA, DENIES ALL QUESTIONS
[2021-03-15] VITALS (67 sets, daily range): BP systolic 91–163; BP diastolic 41–86; Ht 170.2 cm; Wt 155.8 kg
[2021-03-15 05:21] LABS: BASOPHILS 0.5 % (0-2); EOSINOPHILS 0.3 % (0-7); HEMATOCRIT 36.5 % (36.0-48.0); LYMPHOCYTES 15.2 % (15-50); MCH 30.1 pg (26.0-34.0); MCHC 33.1 g/dL (31.0-37.0); MCV 91.1 fL (80.0-100.0); MEAN PLATELET VOLUME 8.8 fL (7.4-10.4); MONOCYTES 10.9 % (2-11); NEUTROPHILS 73.1 % (40-80); PLATELET COUNT 190 10x3/uL (130-400); RDW 13.5 % (11.5-14.5)
[2021-03-15 05:34] LABS: CALC OSMOLALITY 282 mosm/kg (275-300); CALCIUM 8.1 mg/dL (8.5-10.1); CARBON DIOXIDE 28.2 mmol/L (21.0-32.0); CHLORIDE - SERUM 106 mmol/L (98-107); CREATININE - SERUM 0.8 mg/dL (0.6-1.3); GLUCOSE 119 mg/dL (74-106); SODIUM 141 mmol/L (136-145); UREA NITROGEN 14 mg/dL (7-18); eGFR NON AFRICAN AMERICAN 78 mL/min (90-120)
--- NOTE | 2021-03-15 08:08 | CN ---
PATIENT NAME:CRYSTAL RICHARDSON MEDICAL RECORD: [id number] : 62 LOCATION:[facility].CV02 ADMIT DATE: 03/14/21 ACCOUNT: [id number] CONSULTING PHYSICIAN: LYNETTE LIEBERMAN MD REFERRING PHYSICIAN: VAL MESA MD DATE OF CONSULTATION: 03/14/2021 REASON FOR CONSULTATION: This consult requested by Dr. Mesa for medical management. HISTORY OF PRESENT ILLNESS: This is a 60-year-old female with a history of hypertension, hyperlipidemia, coronary artery disease was found to have severe left internal carotid stenosis and was electively admitted by Dr. Mesa for left carotid endarterectomy. I have been consulted for medical management. I have been taking care of this patient for several years. She is postoperative day 0 of her surgery. PAST MEDICAL HISTORY: Hypertension, hyperlipidemia, coronary artery disease, hypothyroidism, depression, fibromyalgia, osteoarthritis, and obesity. PAST SURGICAL HISTORY: Coronary stents, cholecystectomy, hysterectomy, pilonidal cyst, and ORIF of ankle fracture. She has had knee replaced. ALLERGIES: None known. HOME MEDICATIONS: Include Plavix 75 mg a day, atenolol 100 mg once a day, aspirin 81 mg once a day, citalopram 20 mg once a day, lorazepam 1 mg b.i.d. p.r.n. anxiety, furosemide 20 mg once a day, potassium 10 mEq once a day, levothyroxine 125 mcg daily. HABITS: She continues to smoke. Has occasional alcohol. No illicit drug use. 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 FAMILY HISTORY: Father is . He had prostate cancer. Mother is . She had heart disease, breast cancer and dementia. REVIEW OF SYSTEMS: GENERAL: No major weight changes recently. HEENT: No particular sinus or allergy problems. RESPIRATORY: No known diagnosis of COPD or asthma. CARDIAC: See above history. She sees Dr. Shepard for her heart disease. GASTROINTESTINAL: She has occasional heartburn. GENITOURINARY: No significant problems there. MUSCULOSKELETAL: She has osteoarthritis and fibromyalgia. She has had knee replaced. NEUROLOGIC: No seizures. No migraines. PSYCHIATRIC: She has depression. PHYSICAL EXAMINATION: VITAL SIGNS: Today, temperature 98.4, pulse 73, respirations 17, blood pressure 124/61, O2 sat 91%. GENERAL: She is drowsy. EYES: She speaks more out of the right side of her mouth currently. HEENT: Otherwise unremarkable. CONSULT REPORT [id number] CRYSTAL RICHARDSON NECK: Supple. Bandage in place over the left side of the neck. HEART: Regular rate and rhythm without murmur. LUNGS: Fairly clear. ABDOMEN: Soft, obese, nontender. EXTREMITIES: No pitting edema. ASSESSMENT: 1. Hypertension. 2. Severe carotid occlusive disease, now status post left carotid endarterectomy. 3. Hypothyroidism. 4. Depression/anxiety. PLAN: We will continue her usual medicines. We will monitor her blood pressure. Other tests as warranted. Thank you for the consult. We will follow along. TRANSINT:[id number] Voice Confirmation ID: [id number] DOCUMENT ID: [id number] LYNETTE LIEBERMAN MD at 0808 CC: [id number] DICTATION DATE: 03/14/212320 ORBITREAD OPERATOR: 03/15/21 0207 ADM IN [facility] [address] [place] [id number]
--- NOTE | 2021-03-15 08:45 | OP ---
PATIENT NAME: CRYSTAL RICHARDSON MEDICAL RECORD: [id number] :62 [facility] [place] ADMISSION DATE:03/14/21 SURGEON: WILLY FRITZ MD DATE OF OPERATION: 03/14/2021 SURGEON: Willy Fritz MD PROCEDURE PERFORMED: Left carotid endarterectomy. PREOPERATIVE DIAGNOSIS: Carotid stenosis. POSTOPERATIVE DIAGNOSIS: Carotid stenosis. ANESTHESIA: General endotracheal anesthesia. ESTIMATED BLOOD LOSS: 25 cc. COMPLICATIONS: None. SPECIMENS: Plaque. CONDITION: Stable. DISPOSITION: CV-ICU. OPERATIVE FINDINGS: 1. Discrete plaque in the proximal internal carotid artery that was somewhat fibrinous in nature, feathered well distally where the plaque was amputated intact. A CorMatrix patch was used for closure. 2. Neurologically intact to CV-ICU. OPERATIVE INDICATION: Carotid stenosis. DESCRIPTION OF PROCEDURE: The patient was brought to the operating suite. General endotracheal anesthesia was obtained, the patient was prepped and draped. An oblique incision was made in the left neck, taken down through the subcutaneous tissue. Several large facial venous branches were divided between ligatures and suture ligatures. The common carotid was dissected out, encircled with an umbilical tape. External carotid and thyroid branch were dissected out and encircled with vessel loops. Distally, the internal carotid was well up behind the hyoid muscle, which was divided upward retraction and the corner of the jaw was needed and ANSA was divided to retract the hypoglossal nerve superiorly and expose the distal internal carotid. Branch of the external carotid was also retracted superiorly. Heparin was given. After the heparin had circulated backbleeding was controlled with a bulldog clamp and flow with a vascular clamp and backbleeding. The external carotid and thyroid branch were controlled with vessel loops. EEG and cerebral oximetry were monitored and remained stable for 2 minutes. Therefore, arteriotomy was made in the common carotid artery taken out to the region of significant plaque in the proximal internal carotid and into the distal internal carotid and the relatively normal section of artery. The plaque was divided in the common carotid artery. Eversion endarterectomy of the external carotid was performed. The plaque feathered well distally. Plaque was amputated. Thorough irrigation was undertaken. All bits of loose debris were removed. The plaque was tacked distally with interrupted Prolene. Then, the patch was fashioned to the OPERATIVE REPORT [id number] CRYSTAL RICHARDSON appropriate size and sutured along the edge of the arteriotomy. Prior to completing the anastomosis, backbleeding was allowed from all 3 major vessels and the endarterectomy bed was again flushed. Anastomosis completed. Flow was restored first to the external carotid and then to the internal carotid. Interrupted patch sutures were used for hemostasis. Protamine was given. A drain was placed in the neck, but in the first site degenerative vein required opening the incision 1 cm and reclosing it. The drain was placed slightly inferiorly without complication and the neck was irrigated with antibiotic irrigation, closed in 4 layers including Dermabond on the skin. Anesthesia was reversed and neurologically intact to CV ICU. TRANSINT:[id number] Voice Confirmation ID: [id number] DOCUMENT ID: [id number] WILLY FRITZ MD at 0845 CC: BRANDO GARCÍA DO [id number] DICTATION DATE: 03/14/21 1730 ELECTROPLATER: 03/15/21 0142 ADM IN [facility] [address] [place] [address]
[2021-03-16] VITALS (62 sets, daily range): BP systolic 99–167; BP diastolic 40–91
[2021-03-16 05:37] LABS: BASOPHILS 0.6 % (0-2); EOSINOPHILS 2.2 % (0-7); HEMATOCRIT 35.1 % (36.0-48.0); HEMOGLOBIN 11.9 g/dL (12-16); LYMPHOCYTES 11.9 % (15-50); MCH 30.7 pg (26.0-34.0); MCHC 33.7 g/dL (31.0-37.0); MCV 90.9 fL (80.0-100.0); MEAN PLATELET VOLUME 8.8 fL (7.4-10.4); MONOCYTES 10.6 % (2-11); NEUTROPHILS 74.7 % (40-80); PLATELET COUNT 154 10x3/uL (130-400); RBC 3.87 10x6/uL (4.00-5.40); RDW 13.6 % (11.5-14.5); WBC 7.9 10x3/uL (4.8-10.8)
[2021-03-16 05:53] LABS: CALC OSMOLALITY 277 mosm/kg (275-300); CARBON DIOXIDE 29.9 mmol/L (21.0-32.0); CHLORIDE - SERUM 104 mmol/L (98-107); CREATININE - SERUM 0.7 mg/dL (0.6-1.3); GLUCOSE 108 mg/dL (74-106); POTASSIUM - SERUM 3.7 mmol/L (3.5-5.1); SODIUM 140 mmol/L (136-145); eGFR NON AFRICAN AMERICAN > 90 mL/min (90-120)
[2021-03-16 05:55] LABS: UREA NITROGEN 8 mg/dL (7-18)
[2021-03-17] VITALS (25 sets, daily range): BP systolic 115–148; BP diastolic 49–89
[2021-03-17 05:55] LABS: BASOPHILS 0.6 % (0-2); EOSINOPHILS 4.3 % (0-7); HEMATOCRIT 33.8 % (36.0-48.0); HEMOGLOBIN 11.4 g/dL (12-16); MCH 30.6 pg (26.0-34.0); MCHC 33.6 g/dL (31.0-37.0); MCV 91.1 fL (80.0-100.0); MEAN PLATELET VOLUME 8.9 fL (7.4-10.4); MONOCYTES 15.4 % (2-11); NEUTROPHILS 60.7 % (40-80); PLATELET COUNT 139 10x3/uL (130-400); RBC 3.71 10x6/uL (4.00-5.40); RDW 13.6 % (11.5-14.5)
[2021-03-17 06:17] LABS: CALC OSMOLALITY 277 mosm/kg (275-300); CALCIUM 7.9 mg/dL (8.5-10.1); CARBON DIOXIDE 30.8 mmol/L (21.0-32.0); CHLORIDE - SERUM 104 mmol/L (98-107); CREATININE - SERUM 0.6 mg/dL (0.6-1.3); GLUCOSE 106 mg/dL (74-106); POTASSIUM - SERUM 3.6 mmol/L (3.5-5.1); SODIUM 140 mmol/L (136-145); UREA NITROGEN 10 mg/dL (7-18); WBC 5.4 10x3/uL (4.8-10.8); eGFR NON AFRICAN AMERICAN > 90 mL/min (90-120)
[2021-03-17] MEDS ORDERED: LOPRESSOR25 MG PO (09:20)
[2021-03-17] MEDS ORDERED: ULTRAM50 MG PO (09:22)
--- NOTE | 2021-03-17 10:04 | NUR ---
Nutrition Follow-up: POD 3 L carotid endarterectomy. Has been experiencing nausea but none this AM. -BM; +flatus. Diet: Cardiac Wt: 342.8# (03/17) Labs noted: Ca 7.9 Meds noted: Phenergan, Lasix, Micro K, Protonix, Zofran -Encourage PO intake and honor food preferences within diet restrictions. -Monitor wt. -RD will follow up within 3-4 days.
--- NOTE | 2021-03-17 14:12 | MORECARE ---
CASE MANAGEMENT DISCHARGE SUMMARY PATIENT: CRYSTAL RICHARDSON UNIT: [id number] ADM DATE: 03/14/21 AGE: 60 : 62 SEX: F ROOM/BED: [facility] AUTHOR: DANNY,DOC PHYSICIAN: REFERRING PHYSICIAN: VAL MESA MD DATE OF SERVICE: 03/17/21 Case Management Discharge Planning Summary DCP REVIEW SUMMARY ANTICIPATED D/C DATE: 03/17/2021 EXPECTED LOS : 3 CASE STATUS: DCP Initiated INITIAL REVIEW: 03/17/2021 INITIAL REVIEWER: Radha Vallejo FINAL DISCHARGE DISPOSITION: : FINAL REVIEWER: FINAL REVIEW DATE: DCP Focus Questions & Answers QUESTION: ANSWER : PATIENT: CRYSTAL RICHARDSON ENCOUNTER: [id number] MEDICAL RECORD#: [id number] ADMISSION DATE: 03/14/2021 DISCHARGE DATE: ATTENDING MD: VAL LOCO : AGE: 60 MARITAL STATUS: M DC PLAN ID: [id number] FACILITY: [facility] PRINTED ON: 03/17/21 14:12 CT All edits/amendments must be made on the electronic document DICTATION DATE: 03/17/211411 FRONT DESK MONITOR: DM 03/17/21 141 RPT#: [id number] DC DATE: STATUS: ADM IN [facility] [address] [place] [address] END OF REPORT
--- NOTE | 2021-03-17 14:24 | MORECARE ---
CASE MANAGEMENT DISCHARGE SUMMARY PATIENT: CRYSTAL RICHARDSON UNIT: [id number] ADM DATE: 03/14/21 AGE: 60 : 62 SEX: F ROOM/BED: [facility] AUTHOR: DANNY,DOC PHYSICIAN: REFERRING PHYSICIAN: VAL MESA MD DATE OF SERVICE: 03/17/21 Case Management Discharge Planning Summary DCP REVIEW SUMMARY ANTICIPATED D/C DATE: 03/17/2021 EXPECTED LOS : 3 CASE STATUS: DCP Initiated INITIAL REVIEW: 03/17/2021 INITIAL REVIEWER: Radha Vallejo FINAL DISCHARGE DISPOSITION: : FINAL REVIEWER: FINAL REVIEW DATE: DCP Focus Questions & Answers DCP Screen QUESTION: ANSWER High Risk Factors: : None Walking limitation: Patient stated self rated walking limitation present? : No Age: : 45 - 64 Prior living environment: : Lives with others Disability ranking: : Grade 1: No significant disability DCP Evaluation QUESTION: ANSWER Patient's ability to cope with chronic illness : d. No chronic illness Would patient like to participate in any Care Coordination programs (if applicable): : Not applicable Mental health screen: : No mental health history DCP Re-evaluation QUESTION: ANSWER Would patient like to participate in any Care Coordination programs (if applicable): : Not applicable PATIENT: CRYSTAL RICHARDSON ENCOUNTER: [id number] MEDICAL RECORD#: [id number] ADMISSION DATE: 03/14/2021 DISCHARGE DATE: ATTENDING MD: VAL LOCO : AGE: 60 MARITAL STATUS: M DC PLAN ID: [id number] FACILITY: [facility] PRINTED ON: 03/17/21 14:24 CT All edits/amendments must be made on the electronic document DICTATION DATE: 03/17/21 1424 MECHANICAL ENGINEERING ADVISOR: DM 03/17/21 1424 RPT#: [id number] DC DATE: STATUS: ADM IN [facility] [address] [place] [address] END OF REPORT
--- NOTE | 2021-03-17 14:36 | MORECARE ---
CASE MANAGEMENT DISCHARGE SUMMARY PATIENT: CRYSTAL RICHARDSON UNIT: [id number] ADM DATE: 03/14/21 AGE: 60 : 62 SEX: F ROOM/BED: [facility] AUTHOR: DANNYDOC PHYSICIAN: REFERRING PHYSICIAN: VAL MESA MD DATE OF SERVICE: 03/17/21 Case Management Discharge Planning Summary DCP REVIEW SUMMARY ANTICIPATED D/C DATE: 03/17/2021 EXPECTED LOS : 3 CASE STATUS: DCP Initiated INITIAL REVIEW: 03/17/2021 INITIAL REVIEWER: Radha Vallejo FINAL DISCHARGE DISPOSITION: : FINAL REVIEWER: FINAL REVIEW DATE: DCP Focus Questions & Answers DCP Screen QUESTION: ANSWER High Risk Factors: : None Walking limitation: Patient stated self rated walking limitation present? : No Age: : 45 - 64 Prior living environment: : Lives with others Disability ranking: : Grade 1: No significant disability DCP Evaluation QUESTION: ANSWER Patient's ability to cope with chronic illness : a. Adequate (0-3 ED visits in 6 mos., adequate financial resources, attends scheduled appts.) Patient's current cognitive status: : *Oriented to person, place, situation, time and present Family / Caregiver's ability to cope with chronic illness: : a. Adequate (ability to meet patient's medical needs, ensures patient attends medical appts.) Physical Status: : Independent with ADL's Living Arrangements: : Home with Spouse/Significant Other Baseline cognitive status: : *Oriented to person, place, situation, time and present Medication Management: : Patient states can afford medications Pharmacy name(s): : [facility], [address] Does Patient have transportation to get home and to follow-up medical appointments when discharged from the hospital? : Yes Would patient like to participate in any Care Coordination programs (if applicable): : Not applicable Does the patient have electricity at home? : Yes Does the patient have running water in their house? : Yes Equipment in use: : Cane - Single Leg Mental health screen: : No mental health history Psychosocial status: : Independent adult (18-64) Abuse/Neglect: : None Resources / Services in place: : None DCP Re-evaluation QUESTION: ANSWER Would patient like to participate in any Care Coordination programs (if applicable): : Not applicable PATIENT: CRYSTAL RICHARDSON ENCOUNTER: [id number] MEDICAL RECORD#: [id number] ADMISSION DATE: 03/14/2021 DISCHARGE DATE: ATTENDING MD: VAL LOCO : AGE: 60 MARITAL STATUS: M DC PLAN ID: [id number] FACILITY: [facility] PRINTED ON: 03/17/21 14:36 CT All edits/amendments must be made on the electronic document DICTATION DATE: 03/17/211435 CERTIFIED MASTER SAFECRACKER: TYLER 03/17/211435 RPT#: [id number] DC DATE: STATUS: ADM IN [facility] [address] [place] [address] END OF REPORT
--- NOTE | 2021-03-20 14:29 | MORECARE ---
CASE MANAGEMENT DISCHARGE SUMMARY PATIENT: CRYSTAL RICHARDSON UNIT: [id number] ADM DATE: 03/14/21 AGE: 60 : 62 SEX: F ROOM/BED: [facility] AUTHOR: DANNYDOC PHYSICIAN: REFERRING PHYSICIAN: VAL MESA MD DATE OF SERVICE: 03/20/21 Case Management Discharge Planning Summary DCP REVIEW SUMMARY ANTICIPATED D/C DATE: 03/17/2021 EXPECTED LOS : 3 CASE STATUS: DCP Initiated INITIAL REVIEW: 03/17/2021 INITIAL REVIEWER: Radha Vallejo FINAL DISCHARGE DISPOSITION: : FINAL REVIEWER: FINAL REVIEW DATE: DCP Focus Questions & Answers DCP Screen QUESTION: ANSWER High Risk Factors: : None Walking limitation: Patient stated self rated walking limitation present? : No Age: : 45 - 64 Prior living environment: : Lives with others Disability ranking: : Grade 1: No significant disability DCP Evaluation QUESTION: ANSWER Patient's ability to cope with chronic illness : a. Adequate (0-3 ED visits in 6 mos., adequate financial resources, attends scheduled appts.) Patient's current cognitive status: : *Oriented to person, place, situation, time and present Family / Caregiver's ability to cope with chronic illness: : a. Adequate (ability to meet patient's medical needs, ensures patient attends medical appts.) Physical Status: : Independent with ADL's Living Arrangements: : Home with Spouse/Significant Other Baseline cognitive status: : *Oriented to person, place, situation, time and present Medication Management: : Patient states can afford medications Pharmacy name(s): : [facility], [address] Does Patient have transportation to get home and to follow-up medical appointments when discharged from the hospital? : Yes Would patient like to participate in any Care Coordination programs (if applicable): : Not applicable Does the patient have electricity at home? : Yes Does the patient have running water in their house? : Yes Equipment in use: : Cane - Single Leg Mental health screen: : No mental health history Psychosocial status: : Independent adult (18-64) Abuse/Neglect: : None Resources / Services in place: : None DCP Re-evaluation QUESTION: ANSWER Would patient like to participate in any Care Coordination programs (if applicable): : Not applicable PATIENT: CRYSTAL RICHARDSON ENCOUNTER: [id number] MEDICAL RECORD#: [id number] ADMISSION DATE: 03/14/2021 DISCHARGE DATE: 03/17/2021 ATTENDING MD: VAL LOCO : AGE: 60 MARITAL STATUS: M DC PLAN ID: [id number] FACILITY: [facility] PRINTED ON: 03/20/21 14:29 CT All edits/amendments must be made on the electronic document DICTATION DATE: 03/20/211428 FACILITIES PLANNER: TYLER 03/20/211428 RPT#: [id number] DC DATE:03/17/21 STATUS: DIS IN [facility] [address] [place] [address] END OF REPORT
== END 2021-03-17 17:26 | disposition home or self-care (01) | DRG 38 ==
LOC: D.SDCHOLD 03-13 09:00 → D.CVICU 03-14 09:00
PROVIDERS: ADMIT Thoracic Surgery (Cardiothoracic Vascular Surgery); ATTEND Thoracic Surgery (Cardiothoracic Vascular Surgery)
PROC: 03CL0ZZ Extirpation of Matter from Left Internal Carotid Artery, Open Approach (ICD-10-PCS; principal; 2021-03-14 15:15)
DX: I65.22 Occlusion and stenosis of left carotid artery (principal); Z68.43 Body mass index [BMI] 50.0-59.9, adult; I10 Essential (primary) hypertension; E78.5 Hyperlipidemia, unspecified; I25.10 Atherosclerotic heart disease of native coronary artery without angina pectoris; E03.9 Hypothyroidism, unspecified; F32.9 Major depressive disorder, single episode, unspecified; E66.9 Obesity, unspecified; D11.9 Benign neoplasm of major salivary gland, unspecified

== ENCOUNTER 2021-03-21 09:40 | Inpatient (IN) | payer OTHER ==
[~2021-03-21] VITALS: Ht 170.2 cm; Wt 147.7 kg
[2021-03-21] VITALS (11 sets, daily range): BP systolic 111–147; BP diastolic 52–77; Ht 170.2 cm; Wt 147.7 kg
[~2021-03-21 09:40] MED LIST changes: +BAYER CHEWABLE81 MG PO; +CELEXA20 MG PO; +LOPRESSOR25 MG PO
[2021-03-21] MEDS ORDERED: HYDROCHLOROTHIA25 MG PO (09:51)
[2021-03-21 10:18] LABS: BASOPHILS 1.3 % (0-2); EOSINOPHILS 9.6 % (0-7); HEMATOCRIT 39.2 % (36.0-48.0); HEMOGLOBIN 13.2 g/dL (12-16); LYMPHOCYTES 30.3 % (15-50); MCH 30.1 pg (26.0-34.0); MCHC 33.7 g/dL (31.0-37.0); MCV 89.5 fL (80.0-100.0); MEAN PLATELET VOLUME 8.7 fL (7.4-10.4); MONOCYTES 10.6 % (2-11); NEUTROPHILS 48.2 % (40-80); RBC 4.38 10x6/uL (4.00-5.40); RDW 13.3 % (11.5-14.5); WBC 7.7 10x3/uL (4.8-10.8)
[2021-03-21 10:26] LABS: CALC OSMOLALITY 279 mosm/kg (275-300); CALCIUM 9.5 mg/dL (8.5-10.1); CARBON DIOXIDE 29.2 mmol/L (21.0-32.0); CHLORIDE - SERUM 104 mmol/L (98-107); CREATININE - SERUM 0.8 mg/dL (0.6-1.3); GLUCOSE 107 mg/dL (74-106); POTASSIUM - SERUM 4.2 mmol/L (3.5-5.1); SODIUM 141 mmol/L (136-145); UREA NITROGEN 9 mg/dL (7-18); eGFR NON AFRICAN AMERICAN 78 mL/min (90-120)
[2021-03-21 10:41] LABS: ALBUMIN 3.5 g/dL (3.4-5.0); ALKALINE PHOSPHATASE 101 U/L (30-120); ALT (SGPT) 71 U/L (10-68); BILIRUBIN - TOTAL 0.28 mg/dL (0.2-1.3); CKMB 0.3 U/L (0.0-3.6); CREATINE KINASE 53 UL (21-215); PRO BNP 575 pg/mL (0-125); PROTEIN - SERUM 7.6 g/dL (6.4-8.2); TROPONIN-I < 0.017 ng/mL (0.000-0.060)
[2021-03-21 10:43] LABS: PLATELET COUNT 240 10x3/uL (130-400)
[2021-03-21 12:12] LABS: APTT 26.8 SECONDS (22.8-39.4); INR 1.01 (0.85-1.17); PROTIME 12.3 SECONDS (11.6-15.0)
--- NOTE | 2021-03-21 14:10 | NUR ---
PT ARRIVED TO UNIT FROM ICU. VSS. RR EVEN AND NONLABORED. PT HAS A R WRIST/THUMB PIV INFUSING CEVIPREX @ 1ML/HR. BED LOCKED AND IN LOWEST POSITION, CALL LIGHT WITHIN REACH. WILL CTM
[2021-03-22] VITALS (13 sets, daily range): BP systolic 96–146; BP diastolic 4–81
[2021-03-22] MEDS ORDERED: NORVASC2.5 MG PO (14:16)
--- NOTE | 2021-03-22 16:10 | NUR ---
DC PAPERWORK GONE OVER AND SIGNED WITH PT. ALL QUESTIONS ANSWERED. PIV REMOVED, CATH TIP FULLY INTACT. ALL BELONGINGS TAKEN WITH PT. PT WHEELED TO FRONT ENTRANCE WHERE HER WAS DRIVING HER HOME.
== END 2021-03-22 16:20 | disposition home or self-care (01) | DRG 305 ==
LOC: D.ER 09:40 → D.ICU 13:57
PROVIDERS: Emergency Medicine; ADMIT Family Medicine; ATTEND Family Medicine
DX: I16.1 Hypertensive emergency (principal); G51.0 Bell's palsy; F17.200 Nicotine dependence, unspecified, uncomplicated; I25.10 Atherosclerotic heart disease of native coronary artery without angina pectoris; G89.29 Other chronic pain; M54.9 Dorsalgia, unspecified; M79.7 Fibromyalgia; I10 Essential (primary) hypertension; E78.5 Hyperlipidemia, unspecified; F41.8 Other specified anxiety disorders; Z79.82 Long term (current) use of aspirin